=== PATIENT | male | born 1985 | race Caucasian/White ===

== ENCOUNTER → 2016-12-14 | Outpatient (REF) | payer OTHER ==
[2016-12-14 12:21] LABS: MEAN CORPUSCULAR HEMOGLOBIN 33.5 pg (27.0-33.0); MEAN CORPUSCULAR HGB CONC 35.6 g/dl (32.0-36.5); RED CELL DISTRIBUTION WIDTH 11.7 % (11.5-14.5); WHITE BLOOD COUNT 3.9 K/mm3 (4.0-10.0)
[2016-12-14 13:31] LABS: ALBUMIN 3.9 GM/DL (3.2-5.2); ALBUMIN/GLOBULIN RATIO 1.11 (1.00-1.93); ALKALINE PHOSPHATASE 81 U/L (45-117); ALT/SGPT 115 U/L (12-78); ANION GAP 7 MEQ/L (8-16); AST/SGOT 88 U/L (15-37); BILIRUBIN,TOTAL 1.2 MG/DL (0.2-1.0); BLOOD UREA NITROGEN 10 MG/DL (7-18); CARBON DIOXIDE LEVEL 30 MEQ/L (21-32); CHLORIDE LEVEL 105 MEQ/L (98-107); CHOLESTEROL LEVEL 266 MG/DL (<200); CREATININE FOR GFR 0.81 MG/DL (0.70-1.30); FREE T4 0.99 NG/DL (0.76-1.46); GLOMERULAR FILTRATION RATE > 60.0 (>60); GLUCOSE, FASTING 103 MG/DL (70-105); POTASSIUM SERUM 4.2 MEQ/L (3.5-5.1); SODIUM LEVEL 142 MEQ/L (136-145); TOTAL PROTEIN 7.4 GM/DL (6.4-8.2); TRIGLYCERIDES LEVEL 275 MG/DL (<150)
== END ==
LOC: M SFHCLERA 09:46
PROVIDERS: ATTEND Family Medicine
DX: I10 Essential (primary) hypertension (principal); F10.20 Alcohol dependence, uncomplicated; R10.11 Right upper quadrant pain

== ENCOUNTER → 2016-12-15 | Outpatient (CLI) | payer OTHER ==
--- NOTE | 2016-12-15 09:09 | REP ---
Clinical: Acute abdominal pain. Technique: Melchor scale ultrasound using curved array transducer. Findings: The liver demonstrates coarsened echotexture and increased density consistent with hepatocellular disease and fatty infiltration. The pancreas is incompletely evaluated due to interposed bowel gas. The gallbladder is unremarkable and without gallstones, wall thickening or pericholecystic fluid. No biliary ductal dilatation is appreciated. The right kidney is normal in reniform shape without hydronephrosis and measures 10.2 x 6.2 x 5.8 cm. No ascites. Impression: Fatty infiltration of the liver and hepatocellular without focal abnormality. Normal appearance to the gallbladder and biliary system. No ascites. Signed by Miky Mcelroy MD 12/15/2016 09:00 A
== END ==
LOC: M RAD 07:00
PROVIDERS: ATTEND Family Medicine
DX: K76.0 Fatty (change of) liver, not elsewhere classified (principal)

== ENCOUNTER 2017-08-19 04:17 | Emergency (ER) | payer SELFPAY, OTHER ==
[2017-08-19] MEDS: NORCO, ANEXSIA 5/325MG TABLET (HYDROcodone/ACETAMINOPHEN) PO (06:30)
[2017-08-19] MEDS: CLINDAMYCIN 150 MG CAP PO (06:30)
[2017-08-19] MEDS: KETOROLAC 60 MG/2 ML VIAL (J1885) IM (06:30)
== END 2017-08-19 07:01 | disposition home or self-care (01) ==
LOC: M ED 04:17
DX: K04.7 Periapical abscess without sinus (principal); I10 Essential (primary) hypertension; Z87.891 Personal history of nicotine dependence
CPT/HCPCS: J1885

== ENCOUNTER 2018-11-11 13:10 | Emergency (ER) | payer SELFPAY ==
[~2018-11-11] VITALS: Ht 180.3 cm; Wt 120.5 kg
[~2018-11-11 13:10] MED LIST: CLEO300C2 PO; HYDR-3715 PO; KETO10TAB PO
[2018-11-11 14:13] LABS: BASO # 0.1 10^3/uL (0.0-0.2); BASO % 0.7 % (0.0-1.0); EOS # 0.1 10^3/uL (0.0-0.50); EOS % 0.7 % (0.0-3.0); HEMATOCRIT 47.1 % (42.0-52.0); HEMOGLOBIN 16.8 g/dl (13.5-17.5); LYMPH # 1.4 10^3/uL (1.5-4.5); LYMPH % 14.2 % (24.0-44.0); MEAN CORPUSCULAR HEMOGLOBIN 32.9 pg (27.0-33.0); MEAN CORPUSCULAR HGB CONC 35.7 g/dl (32.0-36.5); MEAN CORPUSCULAR VOLUME 92.2 fl (80.0-96.0); MONO # 0.6 10^3/uL (0.0-0.8); MONO % 5.8 % (0.0-5.0); NEUTROPHILS # 7.5 10^3/uL (1.8-7.7); NEUTROPHILS % 78.4 % (36.0-66.0); PLATELET COUNT, AUTOMATED 254 10^3/uL (150-450); RED BLOOD COUNT 5.11 10^6/uL (4.30-6.10); WHITE BLOOD COUNT 9.6 10^3/uL (4.0-10.0)
--- NOTE | 2018-11-11 14:31 | REP ---
Chest one-view HISTORY: Chest pain Comparison: None The lungs are clear. The heart is normal in size. The pulmonary vasculature is normal in appearance. Impression: No acute disease. Electronically Signed by Lucio Vega MD 11/11/2018 02:22 P
[2018-11-11 14:49] LABS: ALBUMIN 3.9 GM/DL (3.2-5.2); ALT/SGPT 55 U/L (12-78); AMYLASE 50 U/L (25-115); BILIRUBIN,DIRECT 0.3 MG/DL (0.0-0.2); BILIRUBIN,TOTAL 1.2 MG/DL (0.2-1.0); BLOOD UREA NITROGEN 14 MG/DL (7-18); CALCIUM LEVEL 8.8 MG/DL (8.5-10.1); CARBON DIOXIDE LEVEL 27 MEQ/L (21-32); CHLORIDE LEVEL 103 MEQ/L (98-107); CPK CREATINE PHOSPHOKINASE 205 U/L (39-308); CREATININE FOR GFR 0.75 MG/DL (0.70-1.30); GLOMERULAR FILTRATION RATE > 60.0 (>60); GLUCOSE, FASTING 107 MG/DL (70-100); LIPASE 240 U/L (73-393); POTASSIUM SERUM 3.7 MEQ/L (3.5-5.1); SODIUM LEVEL 138 MEQ/L (136-145); TOTAL PROTEIN 7.2 GM/DL (6.4-8.2); TROPONIN I < 0.02 NG/ML (< 0.10)
[2018-11-11] MEDS ORDERED: ISOVUE-370 76% 100ML VIAL (Q9967) As Ordered ONE (14:53)
[2018-11-11] MEDS ORDERED: LISINOPRIL 40 MG TAB PO ONE (15:30)
[2018-11-11 16:24] LABS: CPK CREATINE PHOSPHOKINASE 172 U/L (39-308); MB/CK RELATIVE INDEX 1.86 (< OR =4)
--- NOTE | 2018-11-11 16:40 | REP ---
CT pulmonary angiogram: With IV contrast. History: Tachycardia. Rule out pulmonary embolus. Comparison studies: Comparison CT study February 27, 2012. Contrast dose: 75 ML of Isovue [address] technique: Helical scanning is acquired and overlapping 1.5 mm and contiguous 3 mm axial images are reformatted. In addition, maximum intensity projection and multiplanar re-formation images are generated in sagittal and coronal imaging projections. CT pulmonary angiographic findings: There is a fair opacification of the pulmonary arterial tree. There is no CT evidence of pulmonary embolism. Thoracic aorta enhances homogeneously and is normal in course and caliber. No aneurysm or dissection is appreciated. No hilar or mediastinal mass or adenopathy is observed. There are mild linear fibrotic changes in the left lower lobe. Plate-like atelectasis is seen in the left upper lobe. Lung gill are otherwise clear. No pleural or pericardial effusion is seen. There is lymph node calcification in the left hilus. There is a calcified granuloma in the left upper lobe anteriorly. There is mild diffuse fatty infiltration of the liver. No adrenal lesion is seen. The visualized upper abdominal structures are otherwise unremarkable. Impression: No CT evidence of pulmonary embolus. No active cardiopulmonary disease. Minimal plate-like atelectasis left upper lobe. Old granulomatous calcifications. Electronically Signed by Kishan Sainz MD 11/11/2018 04:55 P
[2018-11-11 16:41] LABS: TROPONIN I < 0.02 NG/ML (< 0.10)
--- NOTE | 2018-11-11 16:41 | REP ---
CT abdomen and pelvis with IV but without oral contrast: History: Abdominal pain. CT contrast dose: 100 ml of intravenous Isovue 370. Comparison CT study is from February 27, 2012. CT findings: Preliminary digital brigadier radiograph shows an unremarkable bowel gas pattern. There is fatty infiltration of the liver. Liver is not felt to be enlarged. No focal liver lesion is seen. Spleen is normal in size homogeneous in texture. No pancreatic abnormality is observed. The adrenal glands are normal bilaterally. No abnormalities noted in the gallbladder. The kidneys enhance symmetrically and are morphologically intact. No retroperitoneal mass or adenopathy is observed. Small and large intestinal bowel loops are normal in caliber. There is some intramural fat deposition in the colon which may reflect old inflammatory bowel disease. No acute inflammatory changes are seen. There are dystrophic calcifications in the prostate. Seminal vesicles and urinary bladder are unremarkable. No abdominal wall defect is appreciated. Impression: There is some mild intramural fat deposition in multiple loops of large and distal small bowel which may reflect old inflammatory bowel disease. No acute inflammation is seen. Fatty infiltration of the liver is noted. Otherwise negative CT study of the abdomen and pelvis. Electronically Signed by Kishan Sainz MD 11/11/2018 04:55 P
[2018-11-11] MEDS ORDERED: LISINOPRIL 10 MG TAB PO ONE ×2 (16:45→18:00)
[2018-11-11] MEDS ORDERED: ATENOLOL 25 MG TAB PO ONE (16:45)
[2018-11-11] MEDS ORDERED: LORazepam 2 MG/ML VIAL (J2060) IV STA (17:39)
[2018-11-11] MEDS ORDERED: FUROSEMIDE 20 MG/2 ML VIAL (J1940) IV ONE (18:00)
[2018-11-11] MEDS ORDERED: CHLORTHALIDONE 12.5MG PER 1/2 TABLET PO ONE (18:00)
[2018-11-11] MEDS ORDERED: CARVedilol 12.5 MG TAB PO ONE (18:00)
[2018-11-11] MEDS ORDERED: LISI10TA4 PO ×2 (18:47→19:48)
[2018-11-11] MEDS ORDERED: CARV25TA PO ×2 (18:47→19:49)
[2018-11-11] MEDS ORDERED: CHLO125TA PO ×2 (18:47→19:49)
[2018-11-11 19:42] VITALS: BP 132/96
--- NOTE | 2018-11-12 01:35 | ECGEPIP ---
Stationary ECG Study [facility] - ED Test Date: 2018-11-11 Pat Name: ANDRADE LYNN Department: Room: - Gender: M Advertising Agent: : [id number] Requested By: Mike Rain Order Number: [id number] Reading MD: Federico Portillo Measurements Intervals [place] Rate: 100 P: 30 CA: 194 QRS: -5 QRSD: 90 T: 22 QT: 341 QTc: 440 Interpretive Statements SINUS TACHYCARDIA POSSIBLE LEFT ATRIAL ENLARGEMENT NO PRIORS FOR COMPARISON Electronically Signed On 11-12-2018 1:35:04 EDT by Federico Portillo
== END 2018-11-11 20:00 | disposition home or self-care (01) ==
LOC: M ED 13:10
DX: I10 Essential (primary) hypertension (principal); R07.9 Chest pain, unspecified; R00.0 Tachycardia, unspecified
CPT/HCPCS: 71045; 71275; 74177; 80048; 80076; 81001; 82150; 82550; 82553; 83690; 84484; 85025; 93005; 93041; 94760; 96374; 96375; 99285; J1940; J2060; Q9967

== ENCOUNTER 2018-12-23 21:40 | Emergency (ER) | payer OTHER, SELFPAY ==
[~2018-12-23] VITALS: Ht 180.3 cm; Wt 127.3 kg
[~2018-12-23 21:40] MED LIST changes: +CARV25TA PO; +CHLO125TA PO; +LISI10TA4 PO
[2018-12-24] MEDS ORDERED: LISI10TA4 PO (00:39)
[2018-12-24] MEDS ORDERED: CARV25TA PO (00:39)
[2018-12-24] MEDS ORDERED: CHLO125TA PO (00:39)
[2018-12-24] MEDS ORDERED: CARVedilol 12.5 MG TAB PO ONE (00:45)
[2018-12-24] MEDS ORDERED: LISINOPRIL 10 MG TAB PO ONE (00:45)
[2018-12-24] MEDS ORDERED: CHLORTHALIDONE 12.5MG PER 1/2 TABLET PO ONE (00:45)
[2018-12-24 01:05] VITALS: BP 187/129
[2018-12-24 01:41] VITALS: BP 198/94
== END 2018-12-24 01:43 | disposition home or self-care (01) ==
LOC: M ED 21:40
DX: I16.0 Hypertensive urgency (principal); Z76.0 Encounter for issue of repeat prescription

== ENCOUNTER → 2019-01-10 | Outpatient (CLI) | payer OTHER ==
[2019-01-10 20:13] LABS: ALBUMIN 3.8 GM/DL (3.2-5.2); BLOOD UREA NITROGEN 16 MG/DL (7-18); CALCIUM LEVEL 9.5 MG/DL (8.5-10.1); CARBON DIOXIDE LEVEL 31 MEQ/L (21-32); CHLORIDE LEVEL 103 MEQ/L (98-107); CHOLESTEROL LEVEL 246 MG/DL (<200); CHOLESTEROL RISK RATIO 4.032 (<5); GLOMERULAR FILTRATION RATE > 60.0 (>60); GLUCOSE, FASTING 94 MG/DL (70-100); HDL CHOLESTEROL 61 MG/DL (>40); LDL CHOLESTEROL 144 MG/DL (<100); MAGNESIUM LEVEL 1.7 MG/DL (1.8-2.4); NON-HDL-C 185 MG/DL; POTASSIUM SERUM 3.6 MEQ/L (3.5-5.1); SODIUM LEVEL 142 MEQ/L (136-145); TRIGLYCERIDES LEVEL 204 MG/DL (<150)
== END ==
LOC: M LRY 17:18
PROVIDERS: ATTEND Internal Medicine Cardiovascular Disease
DX: I10 Essential (primary) hypertension (principal); Z68.39 Body mass index [BMI] 39.0-39.9, adult

== ENCOUNTER → 2019-01-21 | Outpatient (REF) | payer OTHER ==
[2019-01-21 16:33] LABS: EOS # 0.1 10^3/uL (0.0-0.50); EOS % 2.9 % (0.0-3.0); HEMATOCRIT 45.2 % (42.0-52.0); HEMOGLOBIN 15.5 g/dl (13.5-17.5); LYMPH # 1.1 10^3/uL (1.5-4.5); LYMPH % 27.7 % (24.0-44.0); MEAN CORPUSCULAR HEMOGLOBIN 33.5 pg (27.0-33.0); MEAN CORPUSCULAR HGB CONC 34.3 g/dl (32.0-36.5); MEAN CORPUSCULAR VOLUME 97.8 fl (80.0-96.0); MONO # 0.5 10^3/uL (0.0-0.8); MONO % 10.9 % (0.0-5.0); NEUTROPHILS # 2.4 10^3/uL (1.8-7.7); NEUTROPHILS % 57.3 % (36.0-66.0); PLATELET COUNT, AUTOMATED 215 10^3/uL (150-450); RED BLOOD COUNT 4.62 10^6/uL (4.30-6.10); WHITE BLOOD COUNT 4.1 10^3/uL (4.0-10.0)
[2019-01-21 16:49] LABS: BLOOD UREA NITROGEN 17 MG/DL (7-18); CALCIUM LEVEL 9.3 MG/DL (8.5-10.1); CARBON DIOXIDE LEVEL 27 MEQ/L (21-32); CHLORIDE LEVEL 102 MEQ/L (98-107); CREATININE FOR GFR 0.88 MG/DL (0.70-1.30); GLOMERULAR FILTRATION RATE > 60.0 (>60); GLUCOSE, FASTING 106 MG/DL (70-100); POTASSIUM SERUM 3.8 MEQ/L (3.5-5.1); SODIUM LEVEL 140 MEQ/L (136-145)
[2019-01-21 16:50] LABS: ALBUMIN 3.8 GM/DL (3.2-5.2); ALT/SGPT 81 U/L (12-78); BILIRUBIN,TOTAL 1.1 MG/DL (0.2-1.0); MAGNESIUM LEVEL 1.7 MG/DL (1.8-2.4); TOTAL PROTEIN 7.4 GM/DL (6.4-8.2)
[2019-01-21 16:51] LABS: HEMOGLOBIN A1c 6.1 %
== END ==
LOC: M SFHCLERA 10:28
PROVIDERS: ATTEND Family Medicine
DX: E66.9 Obesity, unspecified (principal); R23.3 Spontaneous ecchymoses; K76.0 Fatty (change of) liver, not elsewhere classified; I10 Essential (primary) hypertension; R79.0 Abnormal level of blood mineral

== ENCOUNTER → 2019-08-26 | Outpatient (REF) | payer BC | LOC: M SFHCLERA 12:35 | PROVIDERS: ATTEND Physician Assistant | DX: J02.9 Acute pharyngitis, unspecified (principal) ==

== ENCOUNTER → 2019-12-05 | Outpatient (REF) | payer BC ==
[2019-12-05 13:55] LABS: APPEARANCE, URINE CLEAR (CLEAR); BACTERIA, URINE AUTO NEGATIVE (NEGATIVE); BILIRUBIN, URINE AUTO NEGATIVE (NEGATIVE); BLOOD, URINE BLOOD NEGATIVE (NEGATIVE); COLOR, URINE YELLOW (YELLOW); GLUCOSE, URINE (UA) AUTO NEGATIVE (NEGATIVE); KETONE, URINE AUTO NEGATIVE (NEGATIVE); LEUKOCYTE ESTERASE, URINE AUTO NEGATIVE (NEGATIVE); MUCUS, URINE SMALL (NEGATIVE); NITRITE, URINE AUTO NEGATIVE (NEGATIVE); PROTEIN, URINE AUTO NEGATIVE (NEGATIVE); RBC, URINE AUTO 0 /HPF (0-3); SPECIFIC GRAVITY URINE AUTO 1.015 (1.002-1.035); SQUAMOUS EPITHELIAL CELL UR AU 0 /HPF (0-6); WBC, URINE AUTO 0 /HPF (0-3)
[2019-12-05 14:15] LABS: ALBUMIN 3.8 GM/DL (3.2-5.2); ALT/SGPT 100 U/L (12-78); BILIRUBIN,TOTAL 0.8 MG/DL (0.2-1.0); BLOOD UREA NITROGEN 9 MG/DL (7-18); CALCIUM LEVEL 8.5 MG/DL (8.5-10.1); CARBON DIOXIDE LEVEL 28 MEQ/L (21-32); CHLORIDE LEVEL 103 MEQ/L (98-107); CREATININE FOR GFR 0.68 MG/DL (0.70-1.30); FREE T4 1.13 NG/DL (0.76-1.46); GLOMERULAR FILTRATION RATE > 60.0 (>60); GLUCOSE, FASTING 97 MG/DL (70-100); POTASSIUM SERUM 3.9 MEQ/L (3.5-5.1); SODIUM LEVEL 139 MEQ/L (136-145); TOTAL PROTEIN 7.6 GM/DL (6.4-8.2)
== END ==
LOC: M SFHCLERA 10:53
PROVIDERS: ATTEND Family Medicine
DX: I10 Essential (primary) hypertension (principal)